=== PATIENT | female | born 1975 | race Caucasian/White ===

== ENCOUNTER 2022-01-07 22:35 | Inpatient (IN) | payer OTHER, SELFPAY ==
--- NOTE | ~2022-01-07 | XR_ITS ---
EXAMINATION: XR CHEST CLINICAL INFORMATION: Altered mental status. COMPARISON: None TECHNIQUE: Frontal portable view of the chest was obtained. 12:22 AM FINDINGS: Lung volume low. This accentuates bronchovascular markings. Cardiac and mediastinal contours are normal. The heart size is normal. No pleural effusion or pneumothorax. XR/XR chest 1V IMPRESSION: Low lung volume. No acute abnormality of chest.
--- NOTE | ~2022-01-07 | CT_ITS ---
EXAMINATION: CT HEAD WITHOUT CONTRAST CLINICAL INFORMATION: Altered mental status COMPARISON: None TECHNIQUE: Contiguous axial imaging was performed from the skull base to vertex without intravenous administration of contrast. This CT examination was performed using dose optimization techniques as appropriate, variously including the following: *Automated exposure control *Adjustment of mA and/or kV according to patient size (this includes techniques or standardized protocols for targeted exams where dose is matched to indication/reason for exam; i.e. extremities or head) *Use of iterative reconstruction technique DLP: 1202 mGy-cm FINDINGS: There is no evidence of acute intracranial hemorrhage or territorial infarction. No abnormal mass effect or midline shift is seen. Daley to white matter differentiation is well preserved. No extra-axial fluid collections are identified. The ventricles are normal in size. There is no abnormal attenuation within the brain parenchyma. The osseous structures and soft tissues are normal. There is complete opacification of the right maxillary sinus with volume loss. The mastoid air cells are well-aerated. CT/CT head/brain wo con IMPRESSION: No acute intracranial pathology.
--- NOTE | ~2022-01-07 | CT_ITS ---
EXAMINATION: CT ABDOMEN AND PELVIS WITHOUT CONTRAST CLINICAL INFORMATION: LFTs. COMPARISON: None TECHNIQUE: Multidetector volumetric imaging was performed from the superior aspect of the liver through the pubic symphysis. Sagittal and coronal reformatted images were obtained on the technologist's workstation. This CT examination was performed using dose optimization techniques as appropriate, variously including the following: *Automated exposure control *Adjustment of mA and/or kV according to patient size (this includes techniques or standardized protocols for targeted exams where dose is matched to indication/reason for exam; i.e. extremities or head) *Use of iterative reconstruction technique DLP: 735 mGy-cm FINDINGS: There are some limitations to the study without oral or IV contrast and lack of intra-abdominal fat as well as some motion artifact. LUNG BASES: There is bibasilar atelectasis present. No pleural or pericardial effusion. LIVER, GALLBLADDER, AND BILIARY TREE: There is asymmetric density of the liver which appears to be related to motion artifact as well as artifact and patient's arm down by his side. This is mainly seen throughout the right lobe of liver superiorly and liver lesion cannot be excluded on this study. There is mild hepatomegaly with vertical span of approximately 20 cm. No intrahepatic bile duct dilatation is seen. There is a small amount of fluid seen remaining the anterior lateral aspect right lobe of liver. Cholelithiasis is present with some thickening of the gallbladder wall. No fluid within the wall or pericholecystic fluid is noted. Above finding can be related to chronic cholecystitis. Correlation to pain in this location is suggested as to whether this may be related to acute cholecystitis. PANCREAS: Unremarkable. SPLEEN: Unremarkable. ADRENAL GLANDS: Unremarkable. KIDNEYS AND URETERS: The kidneys are normal in size, shape, and attenuation. No hydronephrosis, hydroureter, or calculi seen. No perinephric stranding. BLADDER: Unremarkable. GASTROINTESTINAL TRACT: No dilated loops of large and small bowel bowel identified. No free air identified. There is a small amount of ascites seen within the pelvis. With the ascites seen within the pelvis there is also some fat streaking making evaluation for possible diverticulitis difficult however no significant diverticular disease is seen in above finding is likely related to the small amount of ascites. No abscess collection is appreciated. No other pericolonic inflammatory changes appreciated. The appendix appears unremarkable. ABDOMINAL WALL: No significant hernia is appreciated. LYMPH NODES: No lymphadenopathy is appreciated. VASCULAR: Unremarkable. PELVIC VISCERA: IUD seen in place. Small amount of free fluid. OSSEOUS STRUCTURES: No suspicious findings. CT/CT abdomen pelvis wo con IMPRESSION: Hepatomegaly with limitations in evaluation as described. Small amount of ascites. Cholelithiasis with some gallbladder wall thickening but with the gallbladder being collapsed. No adjacent surrounding fluid. Above findings likely related to chronic cholecystitis and its decompressed state. No evidence of ileus or obstruction of the bowel. No evidence of obstructive uropathy. Fleischner guidelines were followed.
--- NOTE | 2022-01-07 22:57 | ECG_ITS ---
Test Reason : TACHY Blood Pressure : / mmHG Vent. Rate : 102 BPM Atrial Rate : 102 BPM P-R Int : 130 ms QRS Dur : 070 ms QT Int : 352 ms P-R-T Axes : 072 079 083 degrees QTc Int : 458 ms Sinus tachycardia Otherwise normal ECG No previous ECGs available Referred By: Missy Mcfarland Electronically Signed By:ASHLY LINK MD
--- NOTE | 2022-01-07 23:00 | ED_ITS ---
HPI - Altered Mental Status General Chief Complaint: Altered Mental Status Stated Complaint: AMS Time Seen by Provider: 01/07/22 22:55 Source: EMS and old records reviewed ([facility] records) Mode of arrival: EMS Limitations: altered mental status History of Present Illness MD complaint: altered mental status and confusion Onset (ago): hour(s) (2pm) Timing confirmed by: caregiver Severity: moderate Consistency of symptoms: getting Worse Context: other (recently admitted to [facility] 01/06 after being medically cleared at [facility] ED - negative head CT ammonia negative for depression and insomnia given IM 5mg haldol and ativan today had dystonic reaction and given cogentin no response) Associated symptoms: denies other symptoms Treatments prior to arrival: other (cogentin) Related Data Allergies Allergy/AdvReac Type Severity Reaction Status Date / Time haloperidol [From Haldol] AdvReac Intermediate Hallucinati Verified 01/07/22 22:57 ons Review of Systems Review of Systems: ROS unable to be obtained due to altered mental status [facility] Past Medical History Source: old records reviewed Medical History Asthma Cirrhosis Social History Social History (Updated 01/07/22 @ 23:01 by Missy Mcfarland DO) Alcohol intake: former Patient Tobacco Use Status: Tobacco use Unknown Advance Directives: No Physical Exam ED Vital Signs: Vital Signs - 24 hr 01/07/22 23:04 01/08/22 02:19 01/08/22 03:08 Temperature 98.7 F Pulse Rate 99 96 88 Respiratory Rate 18 18 18 Blood Pressure 107/64 94/53 L 81/54 L Pulse Oximetry 99 98 98 01/08/22 03:11 01/08/22 03:22 01/08/22 05:29 Temperature Pulse Rate 108 H 105 H 78 Respiratory Rate 18 18 14 Blood Pressure 98/71 106/65 109/76 Pulse Oximetry 99 99 99 01/08/22 05:41 Temperature Pulse Rate 78 Respiratory Rate 18 Blood Pressure Pulse Oximetry 98 BMI result Body Mass Index 19.5 Appearance: Sonolent, agitated, will not answer questions, thrashing moderate acute distress. Eyes: Pupils equal, round and reactive to light. Scleral icterus ENT: Pharynx dry MM Neck: Normal inspection. Neck supple. CVS: tachycardic heart rate and rhythm. Pulses normal. Respiratory: No respiratory distress. Breath sounds normal. Abdomen: Soft and non-tender. no distention noted Skin: Skin warm and dry. Normal skin color. Normal skin turgor. Extremities: No lower extremity edema. Neuro: moving all extremities cannot participate in exam Course Course Course Narrative: LFTs at baseline from [facility] visit total bili 5.2 on 01/06 suspect ETOH withdrawal reports of no ETOH since november 2021 but MCV high - repeat IV valium, picking at the air, will start on thiamine much more calm with ativan , BP slightly low from IV benzodiazepine, will redose IVF, hypotension due to ativan and not infection or severe sepsis MDM - Altered Mental Status MDM Narrative Medical decision making narrative: 46 yo female with hx of cirrhosis, asthma just medically cleared at [facility] ED with [facility] records showing CT head negative, ammonia negative, US of abdomen negative - voluntary admission for insomnia. She was given IM haldol 5mg today developed dystonia and confusion/hypotension afterwards around 2pm. Was t hen given IM ativan and cogentin and she he has worsened. Sent here for medical workup. Lab Data Result diagrams: 01/07/22 23:19 01/07/22 23:19 Labs: Lab Results 01/07/22 01/07/22 01/07/22 Range/Units 23:19 23:19 23:19 WBC 5.0 (4.8-10.8) X10*3/uL RBC 3.25 L (4.20-5.50) X10*6/uL Hgb 11.0 L (12.0-16.0) g/dl Hct 32.7 L (37.0-47.0) % MCV 100.6 H (80.0-98.0) fL MCH 33.8 H (27.0-33.0) pg MCHC 33.6 (31.0-35.0) g/dl RDW 14.9 (11.0-16.0) % Plt Count 97 L (160-400) X10*3/uL MPV 9.8 (9.4-12.3) fL Immature Gran % (Auto) 0.2 (0.0-0.4) % Neut % (Auto) 73.4 H (45-73) % Lymph % (Auto) 12.3 L (20-40) % [place] % (Auto) 12.3 H (2-11) % Eos % (Auto) 1.2 (0-4) % Baso % (Auto) 0.6 (0-2) % Lymph # (Auto) 0.6 L (1.2-4.9) X10*3/uL [place] # (Auto) 0.6 (0.1-1.2) X10*3/uL Eos # (Auto) 0.1 (0.0-0.4) X10*3/uL Baso # (Auto) 0.0 (0.0-0.2) X10*3/uL Abs Immat Gran (auto) 0.01 (0.00-0.03) X10*3/uL Absolute Neuts (auto) 3.7 (2.0-8.3) x10*3/uL Absolute Nucleated RBC 0.000 (0.0-0.012) X10*3/uL Nucleated RBC % (auto) 0.0 (0.0-0.2) /100WBC PT 20.6 H (9.9-13.0) SEC INR 1.8 H (0.9-1.1) VBG pH (7.32-7.43) VBG pCO2 mmHg VBG pO2 mmHg VBG HCO3 (22-26) mmol/L VBG O2 Saturation % VBG Base Excess mmol/L Sodium 134 L (135-145) mmol/L Potassium 4.4 (3.3-5.1) mmol/L Chloride 97 (96-108) mmol/L Carbon Dioxide 23 (22-29) mmol/L Anion Gap 18 (12-20) BUN 12 (9-16) mg/dL Creatinine 0.77 (0.5-1.4) mg/dL Estim Creat Clear Calc 66.7 Estimated GFR > 60 POC Glucose (60-115) mg/dL Random Glucose 106 (60-115) mg/dL Calcium 9.6 (8.4-10.2) mg/dL Magnesium 1.9 (1.6-2.6) mg/dL Total Bilirubin 4.8 H (0.0-1.0) mg/dL Direct Bilirubin 2.2 H (0.0-0.5) mg/dL AST 117 H (5-31) U/L ALT 40 H (0-31) U/L Alkaline Phosphatase 109 (39-117) U/L Ammonia (13-55) umol/L Total Protein 9.0 H (6.5-8.0) g/dL Albumin 4.3 (3.5-5.0) g/dL Lipase 12 (8-78) U/L COVID-19 (ANDRESSA) (Negative) COVID-19 Clin Com 01/07/22 01/07/22 01/07/22 Range/Units 23:19 23:24 23:27 WBC (4.8-10.8) X10*3/uL RBC (4.20-5.50) X10*6/uL Hgb (12.0-16.0) g/dl Hct (37.0-47.0) % MCV (80.0-98.0) fL MCH (27.0-33.0) pg MCHC (31.0-35.0) g/dl RDW (11.0-16.0) % Plt Count (160-400) X10*3/uL MPV (9.4-12.3) fL Immature Gran % (Auto) (0.0-0.4) % Neut % (Auto) (45-73) % Lymph % (Auto) (20-40) % [place] % (Auto) (2-11) % Eos % (Auto) (0-4) % Baso % (Auto) (0-2) % Lymph # (Auto) (1.2-4.9) X10*3/uL [place] # (Auto) (0.1-1.2) X10*3/uL Eos # (Auto) (0.0-0.4) X10*3/uL Baso # (Auto) (0.0-0.2) X10*3/uL Abs Immat Gran (auto) (0.00-0.03) X10*3/uL Absolute Neuts (auto) (2.0-8.3) x10*3/uL Absolute Nucleated RBC (0.0-0.012) X10*3/uL Nucleated RBC % (auto) (0.0-0.2) /100WBC PT (9.9-13.0) SEC INR (0.9-1.1) VBG pH 7.39 (7.32-7.43) VBG pCO2 33 mmHg VBG pO2 38 mmHg VBG HCO3 21 L (22-26) mmol/L VBG O2 Saturation 50.0 % VBG Base Excess -3.0 mmol/L Sodium (135-145) mmol/L Potassium (3.3-5.1) mmol/L Chloride (96-108) mmol/L Carbon Dioxide (22-29) mmol/L Anion Gap (12-20) BUN (9-16) mg/dL Creatinine (0.5-1.4) mg/dL Estim Creat Clear Calc Estimated GFR POC Glucose 90 (60-115) mg/dL Random Glucose (60-115) mg/dL Calcium (8.4-10.2) mg/dL Magnesium (1.6-2.6) mg/dL Total Bilirubin (0.0-1.0) mg/dL Direct Bilirubin (0.0-0.5) mg/dL AST (5-31) U/L ALT (0-31) U/L Alkaline Phosphatase (39-117) U/L Ammonia (13-55) umol/L Total Protein (6.5-8.0) g/dL Albumin (3.5-5.0) g/dL Lipase (8-78) U/L COVID-19 (ANDRESSA) Negative (Negative) COVID-19 Clin Com See Note 01/07/22 Range/Units 23:37 WBC (4.8-10.8) X10*3/uL RBC (4.20-5.50) X10*6/uL Hgb (12.0-16.0) g/dl Hct (37.0-47.0) % MCV (80.0-98.0) fL MCH (27.0-33.0) pg MCHC (31.0-35.0) g/dl RDW (11.0-16.0) % Plt Count (160-400) X10*3/uL MPV (9.4-12.3) fL Immature Gran % (Auto) (0.0-0.4) % Neut % (Auto) (45-73) % Lymph % (Auto) (20-40) % [place] % (Auto) (2-11) % Eos % (Auto) (0-4) % Baso % (Auto) (0-2) % Lymph # (Auto) (1.2-4.9) X10*3/uL [place] # (Auto) (0.1-1.2) X10*3/uL Eos # (Auto) (0.0-0.4) X10*3/uL Baso # (Auto) (0.0-0.2) X10*3/uL Abs Immat Gran (auto) (0.00-0.03) X10*3/uL Absolute Neuts (auto) (2.0-8.3) x10*3/uL Absolute Nucleated RBC (0.0-0.012) X10*3/uL Nucleated RBC % (auto) (0.0-0.2) /100WBC PT (9.9-13.0) SEC INR (0.9-1.1) VBG pH (7.32-7.43) VBG pCO2 mmHg VBG pO2 mmHg VBG HCO3 (22-26) mmol/L VBG O2 Saturation % VBG Base Excess mmol/L Sodium (135-145) mmol/L Potassium (3.3-5.1) mmol/L Chloride (96-108) mmol/L Carbon Dioxide (22-29) mmol/L Anion Gap (12-20) BUN (9-16) mg/dL Creatinine (0.5-1.4) mg/dL Estim Creat Clear Calc Estimated GFR POC Glucose (60-115) mg/dL Random Glucose (60-115) mg/dL Calcium (8.4-10.2) mg/dL Magnesium (1.6-2.6) mg/dL Total Bilirubin (0.0-1.0) mg/dL Direct Bilirubin (0.0-0.5) mg/dL AST (5-31) U/L ALT (0-31) U/L Alkaline Phosphatase (39-117) U/L Ammonia 23 (13-55) umol/L Total Protein (6.5-8.0) g/dL Albumin (3.5-5.0) g/dL Lipase (8-78) U/L COVID-19 (ANDRESSA) (Negative) COVID-19 Clin Com ECG Data ECG #1: Attestation: I personally reviewed and interpreted this ECG as follows: ECG interpretation date: 01/07/22 ECG interpretation time: 23:42 Interpretation: Rate: 102 Rhythm: sinus tachycardia [place]: normal Normal P waves. Normal MAGALI. Normal QRS complex. ST T wave : normal no DICKSON qTC: normal prior studies: no acute ischemia The study has been interpreted contemporaneously by me. . Critical Care Time Critical Care Time Critical Care Time: Yes Total Critical Care Time: 45 Attestation: review of outside records, IVF x 2L, repeat IV ativan I attest to this time spent taking care of the patient Discharge Plan Discharge Clinical Impression: Acute delirium Patient Disposition: Admitted As Inpatient
[2022-01-07 23:04] VITALS: BP 107/64; BP 112/64; PULSE 91; PULSE 99; RESP 18; TEMP 37.1; O2SAT 97; O2SAT 99; BMI 19.5
[2022-01-07] MEDS: diphenhydrAMINE HCL 50 MG/ML VIAL 25 MG IVPUSH (23:22)
[2022-01-07] MEDS: LORazepam 2 MG/ML VIAL 0.5 MG IVPUSH (23:23)
[2022-01-07] MEDS: 0.9 % Sodium Chloride 1,000 ML 999 ML IVCONT (23:24)
[2022-01-07 23:27] LABS: MANUAL DIFF FLAG NO
[2022-01-07 23:28] LABS: Basophils Percent Auto 0.6 % (0-2); Eosinophils Absolute Auto 0.1 X10*3/uL (0.0-0.4); Eosinophils Percent Auto 1.2 % (0-4); Hematocrit 32.7 % (37.0-47.0); Imm Gran Abs Auto 0.01 X10*3/uL (0.00-0.03); Imm Gran Pct Auto 0.2 % (0.0-0.4); Lymphocytes Absolute Auto 0.6 X10*3/uL (1.2-4.9); Lymphocytes Percent Auto 12.3 % (20-40); Mean Corpuscular HGB Conc 33.6 g/dl (31.0-35.0); Mean Corpuscular Hemoglobin 33.8 pg (27.0-33.0); Mean Corpuscular Volume 100.6 fL (80.0-98.0); Mean Platelet Volume 9.8 fL (9.4-12.3); Monocytes Absolute Auto 0.6 X10*3/uL (0.1-1.2); Monocytes Percent Auto 12.3 % (2-11); Neutrophils Absolute Auto 3.7 x10*3/uL (2.0-8.3); Neutrophils Percent Auto 73.4 % (45-73); Red Blood Count 3.25 X10*6/uL (4.20-5.50); Red Cell Distribution Width 14.9 % (11.0-16.0)
[2022-01-07 23:30] LABS: Glucose, Whole Blood 90 mg/dL (60-115)
[2022-01-07 23:31] LABS: VBG HCO3 21 mmol/L (22-26); VBG pCO2 33 mmHg; VBG pH 7.39 (7.32-7.43); VBG pO2 38 mmHg
[2022-01-07 23:33] LABS: Platelet Count 97 X10*3/uL (160-400)
[2022-01-07 23:36] LABS: INTERNATIONAL NORM RATIO 1.8 (0.9-1.1); Prothrombin Time 20.6 SEC (9.9-13.0)
[2022-01-07 23:45] LABS: COVID-19 Test Negative (Negative)
[2022-01-07 23:48] LABS: Venous Blood Gas Refer to POC result
[2022-01-07 23:50] LABS: Ammonia 23 umol/L (13-55)
[2022-01-07 23:59] LABS: Alanine Aminotransferase 40 U/L (0-31); Albumin Level 4.3 g/dL (3.5-5.0); Alkaline Phosphatase 109 U/L (39-117); Anion Gap 18 (12-20); Aspartate Amino Transferase 117 U/L (5-31); Bilirubin Direct 2.2 mg/dL (0.0-0.5); Bilirubin Total 4.8 mg/dL (0.0-1.0); Blood Urea Nitrogen 12 mg/dL (9-16); Calcium 9.6 mg/dL (8.4-10.2); Carbon Dioxide 23 mmol/L (22-29); Chloride 97 mmol/L (96-108); Creatinine Clr Calc Pharmacy 66.7; Estimated Glomerular Filt Rate > 60; Glucose Random 106 mg/dL (60-115); Lipase 12 U/L (8-78); Magnesium 1.9 mg/dL (1.6-2.6); Potassium 4.4 mmol/L (3.3-5.1); Sodium 134 mmol/L (135-145)
[2022-01-08] VITALS (12 sets, daily range): BP systolic 81–126; BP diastolic 53–76; PULSE 73–108; RESP 14–18; TEMP 36.3–37.2; O2SAT 98–100; BMI 19.5
[2022-01-08] MEDS: LORazepam 2 MG/ML VIAL 1 MG IVPUSH (01:28)
[2022-01-08] MEDS: 0.9 % Sodium Chloride 1,000 ML 999 ML IV (02:57)
[2022-01-08] MEDS: Thiamine HCL 200 MG in 0.9 % Sodium Chloride 100 ML 204 MG IV (03:02)
[2022-01-08] MEDS: 0.9 % Sodium Chloride 500 ML IV ×2 (03:47→03:48)
--- NOTE | 2022-01-08 05:39 | PM.IMHP ---
History of Present Illness Date of Service: 01/08/22 Chief Complaint: dystonia This is a 46-year-old female with past medical history of asthma and cirrhosis obtained from chart who presents to the hospital from [facility] for AMS. After reviewing her chart from [facility] it appears that pt was seen at [facility] for auditory and visual hallucination. Patient was diagnosed with psychosis and sent to [facility] for voluntary admission.At [facility] she received Haldol and there was concern for dystonia. Pt became more altered and therefore sent to the hospital for further management. While in the ED patient was noted to to have visual hallucinations, she received Ativan, and is now somnolent and responds only to painful stimuli. On review for vitals, appear to be stable - she did have recorded episodes of hypotension that resolved. Patient received 3.5 L of IV fluids. Labs were reviewed and are significant for WBC count of 5.0, hemoglobin of 10.1, hematocrit 30.3, INR of 1.8, sodium of 134, bilirubin of 4.8, direct bilirubin of 2.2, AST of 117, ALT of 40, Head CT showed no acute intracranial pathology Patient will be admitted for further management unable to obtain her family history due to her mental status Review of Systems Review of Systems: Yes Unobtainable due to mental condition and Unobtainable due to mental status [facility] Medical History Asthma Cirrhosis Social History Alcohol intake: former Patient Tobacco Use Status: Tobacco use Unknown Advance Directives: No Meds Allergies Allergy/AdvReac Type Severity Reaction Status Date / Time haloperidol [From Haldol] AdvReac Intermediate Hallucinati Verified 01/07/22 22:57 ons Active Medications: Current Medications Acetaminophen (Acetaminophen 325 Mg Tablet) 650 mg PO Q6H PRN PRN Reason: Pain, Mild (Pain Scale 1-3) Docusate Sodium (Docusate Sodium 100 Mg Capsule) 100 mg PO DAILY PRN PRN Reason: Constipation Enoxaparin Sodium (Enoxaparin Sodium 40 Mg/0.4 Ml Syringe) 40 mg SUBCUT Q24H LANI Sodium Chloride (Ns) 1,000 mls @ 100 mls/hr IVCONT .Q10H LANI Ondansetron HCl (Ondansetron Hcl 4 Mg/2 Ml Vial) 4 mg IVPUSH Q8H PRN PRN Reason: Nausea and Vomiting Pharmacy Consult (Consult Rx Etoh Phenob Po Dose) 1 each MISCELLANE ONCE PRN; Protocol PRN Reason: Consult order Phenobarbital 100 mg/ (Phenobarbital 15 mg) 115 mg PO Q3H [facility] Stop: 01/08/22 09:01 Sodium Chloride (0.9 % Sodium Chloride Flush 3 Ml Syringe) 3 ml IVFLUSH QSHIFT [facility] Home Medications Medication Instructions Recorded Confirmed Last Taken Type albuterol sulfate 90 mcg/actuation 2 puff INHALATION NEEDED 01/08/22 Unknown History aerosol inhaler fluticasone propionate 220 1 puff INHALATION BID 01/08/22 Unknown History mcg/actuation HFA aerosol inhaler (Flovent HFA) folic acid 1 mg tablet 1 tab PO DAILY 01/08/22 Unknown History furosemide 20 mg tablet 1 tab PO DAILY 01/08/22 Unknown History multivitamin with folic acid 400 1 tab PO DAILY 01/08/22 Unknown History mcg tablet (Daily-[place] (with folic acid)) spironolactone 50 mg tablet 1 tab PO DAILY 01/08/22 Unknown History thiamine HCl (vitamin B1) 100 mg 1 tab PO DAILY 01/08/22 Unknown History tablet Physical Exam Vital Signs and Narrative: Vital Signs: Last Vital Signs Temp 98.7 F 01/07/22 23:04 Pulse 78 01/08/22 05:29 Resp 14 01/08/22 05:29 BP 109/76 01/08/22 05:29 Pulse Ox 99 01/08/22 05:29 BMI result Body Mass Index 19.5 Const: Other: Somnolent, response to painful stimuli only General: cooperative and no acute distress Eyes: General: appearance normal, both eyes and all related structures Resp: Effort & Inspection: normal respiratory effort Auscultation: clear to auscultation bilaterally Cardio: Rate: regular rate Rhythm: regular rhythm GI: Palpation (GI): Soft to palpation Auscultation: normal bowel sounds Skin: General skin exam: no rashes or lesions noted Extrem: General: Yes normal to inspection and Yes no pedal edema Results Labs CBC and Chem 7: 01/08/22 07:16 01/07/22 23:19 Labs: Laboratory Results - last 24 hr 01/07/22 01/07/22 01/07/22 23:19 23:19 23:19 MCV 100.6 H MCH 33.8 H MCHC 33.6 RDW 14.9 Plt Count 97 L MPV 9.8 Immature Gran % (Auto) 0.2 Neut % (Auto) 73.4 H Lymph % (Auto) 12.3 L [place] % (Auto) 12.3 H Eos % (Auto) 1.2 Baso % (Auto) 0.6 Lymph # (Auto) 0.6 L [place] # (Auto) 0.6 Eos # (Auto) 0.1 Baso # (Auto) 0.0 Abs Immat Gran (auto) 0.01 Absolute Neuts (auto) 3.7 Absolute Nucleated RBC 0.000 Nucleated RBC % (auto) 0.0 PT 20.6 H INR 1.8 H VBG pH VBG pCO2 VBG pO2 VBG HCO3 VBG O2 Saturation VBG Base Excess Anion Gap 18 Estim Creat Clear Calc 66.7 Estimated GFR > 60 POC Glucose Random Glucose 106 Calcium 9.6 Magnesium 1.9 Total Bilirubin 4.8 H Direct Bilirubin 2.2 H AST 117 H ALT 40 H Alkaline Phosphatase 109 Ammonia Total Protein 9.0 H Albumin 4.3 Lipase 12 COVID-19 (ANDRESSA) COVID-19 Clin Com 01/07/22 01/07/22 01/07/22 23:19 23:24 23:27 MCV MCH MCHC RDW Plt Count MPV Immature Gran % (Auto) Neut % (Auto) Lymph % (Auto) [place] % (Auto) Eos % (Auto) Baso % (Auto) Lymph # (Auto) [place] # (Auto) Eos # (Auto) Baso # (Auto) Abs Immat Gran (auto) Absolute Neuts (auto) Absolute Nucleated RBC Nucleated RBC % (auto) PT INR VBG pH 7.39 VBG pCO2 33 VBG pO2 38 VBG HCO3 21 L VBG O2 Saturation 50.0 VBG Base Excess -3.0 Anion Gap Estim Creat Clear Calc Estimated GFR POC Glucose 90 Random Glucose Calcium Magnesium Total Bilirubin Direct Bilirubin AST ALT Alkaline Phosphatase Ammonia Total Protein Albumin Lipase COVID-19 (ANDRESSA) Negative COVID-19 Clin Com See Note 01/07/22 23:37 MCV MCH MCHC RDW Plt Count MPV Immature Gran % (Auto) Neut % (Auto) Lymph % (Auto) [place] % (Auto) Eos % (Auto) Baso % (Auto) Lymph # (Auto) [place] # (Auto) Eos # (Auto) Baso # (Auto) Abs Immat Gran (auto) Absolute Neuts (auto) Absolute Nucleated RBC Nucleated RBC % (auto) PT INR VBG pH VBG pCO2 VBG pO2 VBG HCO3 VBG O2 Saturation VBG Base Excess Anion Gap Estim Creat Clear Calc Estimated GFR POC Glucose Random Glucose Calcium Magnesium Total Bilirubin Direct Bilirubin AST ALT Alkaline Phosphatase Ammonia 23 Total Protein Albumin Lipase COVID-19 (ANDRESSA) COVID-19 Clin Com Imaging Radiologist's Impressions: Impressions Chest X-Ray 01/08/22 00:30 IMPRESSION: Low lung volume. No acute abnormality of chest. Head CT 01/08/22 01:57 IMPRESSION: No acute intracranial pathology. Assessment and Plan (1) Encephalopathy: Status: Acute (2) Hypotension: Status: Acute (3) Acute delirium: Status: Acute (4) Transaminitis: Status: Acute Plan 46-year-old female with past medical history of alcohol abuse presents to the hospital with encephalopathy # encephalopathy - likely psychosis versus drug-induced - no evidence of acute infection - head CT negative - will consult Psychiatry - if continues to be encephalopathic, consider MRI # hypotension - likely induced by medications as patient received multiple rounds of Ativan - improved with IV fluids - no evidence of infection, afebrile, no leukocytosis, normal lactic acid - monitor BP # transaminitis - unclear etiology - will obtain abdominal CT - trend liver panel DVT prophylaxis: Lovenox Quality Stroke Does the patient have a stroke diagnosis?: No VTE Prior VTE?: No VTE Risk Level:: Medical - moderate - high VTE Device Contraindication: Treatment Not Indicated VTE Drug Contraindication: N/A - Med Ordered
[2022-01-08] MEDS: Lactated Ringers 500 ML IV (06:08)
[2022-01-08] MEDS: 0.9 % Sodium Chloride 1,000 ML 100 ML IVCONT ×2 (07:19→17:52)
[2022-01-08] MEDS: Enoxaparin Sodium 40 MG/0.4 ML SYRINGE SUBCUT (07:19)
[2022-01-08 07:21] LABS: MANUAL DIFF FLAG NO
[2022-01-08] MEDS: 0.9 % Sodium Chloride Flush 3 ML SYRINGE IVFLUSH (07:23)
[2022-01-08 07:24] LABS: Basophils Absolute Auto 0.1 X10*3/uL (0.0-0.2); Eosinophils Absolute Auto 0.1 X10*3/uL (0.0-0.4); Hematocrit 30.3 % (37.0-47.0); Hemoglobin 10.1 g/dl (12.0-16.0); Imm Gran Abs Auto 0.01 X10*3/uL (0.00-0.03); Imm Gran Pct Auto 0.2 % (0.0-0.4); Lymphocytes Absolute Auto 1.1 X10*3/uL (1.2-4.9); Lymphocytes Percent Auto 21.4 % (20-40); Mean Corpuscular HGB Conc 33.3 g/dl (31.0-35.0); Mean Corpuscular Hemoglobin 33.8 pg (27.0-33.0); Mean Corpuscular Volume 101.3 fL (80.0-98.0); Mean Platelet Volume 10.9 fL (9.4-12.3); Monocytes Absolute Auto 0.9 X10*3/uL (0.1-1.2); Monocytes Percent Auto 18.8 % (2-11); Neutrophils Absolute Auto 2.8 x10*3/uL (2.0-8.3); Neutrophils Percent Auto 56.6 % (45-73); Red Blood Count 2.99 X10*6/uL (4.20-5.50); Red Cell Distribution Width 15.1 % (11.0-16.0)
[2022-01-08 07:26] LABS: Platelet Count 93 X10*3/uL (160-400)
[2022-01-08 07:36] LABS: Lactic Acid 0.9 mmol/L (0.5-2.0)
[2022-01-08 08:44] LABS: Anion Gap 15 (12-20); Blood Urea Nitrogen 8 mg/dL (9-16); Calcium 8.2 mg/dL (8.4-10.2); Carbon Dioxide 18 mmol/L (22-29); Chloride 106 mmol/L (96-108); Creatinine Clr Calc Pharmacy 91.7; Estimated Glomerular Filt Rate > 60; Glucose Random 74 mg/dL (60-115); Potassium 4.3 mmol/L (3.3-5.1); Sodium 135 mmol/L (135-145)
[2022-01-08 08:48] LABS: Procalcitonin 0.11 ng/mL
--- NOTE | 2022-01-08 09:10 | PHA.MEDREC ---
Pharmacy Consult ? Medication Reconciliation Pharmacy has completed the medication reconciliation.
--- NOTE | 2022-01-08 12:32 | PC.NURSE ---
report obtained from juliana, [facility] patient was transferred from stretcher to bed, patient currently appears to be sleeping, opened her eyes to stimulus but was unable to speak to this nurse, ivf running per order, call denise within reach, pt resting comfortably at this time, will continue to monitor.
--- NOTE | 2022-01-08 12:49 | PC.NURSE ---
patient is incontinent, pure wick placed to assist with patient comfort
--- NOTE | 2022-01-08 14:36 | PM.EVENT ---
Event Note Date of Service: 01/08/22 Event Note: The patient was seen and evaluated this morning Still altered mentation but responsive to painful stimuli GCS score of 9 BMP showing metabolic acidosis To recheck blood work Pending psychiatry consult
--- NOTE | 2022-01-08 15:20 | MHC.CARE ---
Please consult CARE Team when pt is medically cleared for evaluation.
[2022-01-08 15:56] LABS: Anion Gap 15 (12-20); Blood Urea Nitrogen 8 mg/dL (9-16); Calcium 7.9 mg/dL (8.4-10.2); Carbon Dioxide 18 mmol/L (22-29); Chloride 107 mmol/L (96-108); Creatinine Clr Calc Pharmacy 90.2; Estimated Glomerular Filt Rate > 60; Glucose Random 74 mg/dL (60-115); Potassium 3.9 mmol/L (3.3-5.1); Sodium 136 mmol/L (135-145)
--- NOTE | 2022-01-08 16:52 | MHC.CARE ---
CARE Team is aware of pt. Consult CARE Team when pt is medically cleared for evaluation.
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
[2022-01-08] MEDS: Sertraline HCL 25 MG TABLET 12.5 MG PO (17:51)
[2022-01-08] MEDS: Thiamine HCL 100 MG TABLET PO (17:52)
[2022-01-08] MEDS: Folic Acid 1 MG TABLET PO (17:52)
[2022-01-08 18:38] LABS: Iron 151 mcg/dL (30-160); Percent Iron Saturation 63 % (15-50); Total Iron Binding Capacity 239 mcg/dL (228-428); Unsaturated Iron Binding 88 ug/dL
[2022-01-08 18:57] LABS: TSH reflex Free T4 2.22 uIU/mL (0.32-4.0)
[2022-01-08 18:58] LABS: Thyroid Stimulating Hormone 2.14 uIU/mL (0.32-4.0); Vitamin D 25-OH Total 19.5 ng/mL (>30)
[2022-01-09 03:46] VITALS: BP 96/54; PULSE 67; RESP 18; TEMP 36.6; O2SAT 97
[2022-01-09 07:34] LABS: Prothrombin Time 22.5 SEC (9.9-13.0)
[2022-01-09 07:56] LABS: Alanine Aminotransferase 38 U/L (0-31); Albumin Level 3.1 g/dL (3.5-5.0); Alkaline Phosphatase 76 U/L (39-117); Anion Gap 13 (12-20); Aspartate Amino Transferase 126 U/L (5-31); Bilirubin Direct 1.6 mg/dL (0.0-0.5); Bilirubin Total 3.4 mg/dL (0.0-1.0); Blood Urea Nitrogen 9 mg/dL (9-16); Calcium 7.9 mg/dL (8.4-10.2); Carbon Dioxide 19 mmol/L (22-29); Chloride 108 mmol/L (96-108); Creatinine Clr Calc Pharmacy 88.8; Estimated Glomerular Filt Rate > 60; Glucose Random 76 mg/dL (60-115); Potassium 3.7 mmol/L (3.3-5.1); Sodium 136 mmol/L (135-145); Total Protein 6.3 g/dL (6.5-8.0)
[2022-01-09 08:00] VITALS: BP 93/57; PULSE 69; RESP 17; TEMP 37.3; O2SAT 98
[2022-01-09] MEDS: Multivitamin TABLET 1 TAB PO (09:01)
[2022-01-09] MEDS: Thiamine HCL 100 MG TABLET PO (09:02)
[2022-01-09] MEDS: 0.9 % Sodium Chloride Flush 3 ML SYRINGE IVFLUSH ×3 (09:02→21:07)
[2022-01-09] MEDS: Folic Acid 1 MG TABLET PO (09:02)
[2022-01-09] MEDS: Sertraline HCL 25 MG TABLET 12.5 MG PO (09:03)
[2022-01-09 11:32] VITALS: BP 105/47; PULSE 72; RESP 18; TEMP 36.8; O2SAT 98
--- NOTE | 2022-01-09 11:58 | HO.PM.IMPN ---
Subjective Subjective Date of Service: 01/09/22 Interval History: Laying in bed, feels mild improvement but still reporting general weakness She was able to sleep well overnight Still look anxious, having less tremors than yesterday Denies any fever, chills or chest pain No reported other overnight events. Systemic review: No fever, chills but reports generalized weakness and feeling sleepy but not back to her normal self yet No chest pain, palpitation No shortness of breath or coughing No abdominal pain, nausea or vomiting No urinary symptoms Denies any rash or wounds Physical Exam Vital Signs: Vital Signs: Last Vital Signs Temp 98.2 F 01/09/22 11:32 Pulse 72 01/09/22 11:32 Resp 18 01/09/22 11:32 BP 105/47 L 01/09/22 11:32 Pulse Ox 98 01/09/22 11:32 BMI result Body Mass Index 19.5 Const: Other: Constitutional : Alert, interactive, mildly anxious Neck : Normal inspection, Supple Cardiovascular : RRR, no JVP, no lower extremity edema Respiratory : fair bilateral air entry, no crackles, wheezes or rhonchi Gastrointestinal: soft, lax, Normal bowel sounds, Non tender Skin : Warm, Dry Neurological : Alert & oriented to self and place, No focal deficit , having fine action tremors Psychological: No reported hallucinations this morning as she slipped overnight Objective Data Active Medications Acetaminophen (Acetaminophen 325 Mg Tablet) 650 mg PO Q6H PRN PRN Reason: Pain, Mild (Pain Scale 1-3) Albuterol Sulfate (Albuterol Sulfate 90 Mcg 8 Gm Inhaler) 2 puff INHALE Q4H PRN PRN Reason: Shortness of Breath Docusate Sodium (Docusate Sodium 100 Mg Capsule) 100 mg PO DAILY PRN PRN Reason: Constipation Enoxaparin Sodium (Enoxaparin Sodium 40 Mg/0.4 Ml Syringe) 40 mg SUBCUT Q24H [facility] Last Admin: 01/09/22 05:42 Dose: Not Given Documented by: JORDON Non-Admin Reason: Patient Asleep Folic Acid (Folic Acid 1 Mg Tablet) 1 mg PO DAILY [facility] Last Admin: 01/09/22 09:02 Dose: 1 mg Documented by: MARCELA Hydroxyzine HCl (Hydroxyzine Hcl 50 Mg Tablet) 50 mg PO Q6H PRN PRN Reason: anxiety/restlessness Lorazepam (Lorazepam 0.5 Mg Tablet) 0.5 mg PO Q4H PRN PRN Reason: anxiety/restlessness Multivitamins/Vitamin C (Multivitamin Tablet) 1 tab PO DAILY [facility] Last Admin: 01/09/22 09:01 Dose: 1 tab Documented by: MARCELA Ondansetron HCl (Ondansetron Hcl 4 Mg/2 Ml Vial) 4 mg IVPUSH Q8H PRN PRN Reason: Nausea and Vomiting Pharmacy Consult (Consult Rx Perform Med Rec) 1 each MISCELLANE ONCE PRN PRN Reason: Consult order Sertraline HCl (Sertraline Hcl 25 Mg Tablet) 12.5 mg PO DAILY [facility] Last Admin: 01/09/22 09:03 Dose: 12.5 mg Documented by: MARCELA Sodium Chloride (0.9 % Sodium Chloride Flush 3 Ml Syringe) 3 ml IVFLUSH QSHIFT [facility] Last Admin: 01/09/22 09:02 Dose: 3 ml Documented by: MARCELA Thiamine HCl (Thiamine Hcl 100 Mg Tablet) 100 mg PO DAILY [facility] Last Admin: 01/09/22 09:02 Dose: 100 mg Documented by: MARCELA Labs CBC & Chem 7: 01/08/22 07:16 01/09/22 06:02 Labs: Laboratory Results - last 24 hr 01/08/22 01/08/22 01/08/22 15:30 18:15 18:15 PT INR Anion Gap 15 Estim Creat Clear Calc 90.2 Estimated GFR > 60 Random Glucose 74 Calcium 7.9 L Iron 151 TIBC 239 % Saturation 63 H Unsat Iron Binding 88 Total Bilirubin Direct Bilirubin AST ALT Alkaline Phosphatase Total Protein Albumin 25-OH Vitamin D Total 19.5 TSH 2.14 2.22 01/09/22 01/09/22 06:02 06:02 PT 22.5 H INR 2.0 H Anion Gap 13 Estim Creat Clear Calc 88.8 Estimated GFR > 60 Random Glucose 76 Calcium 7.9 L Iron TIBC % Saturation Unsat Iron Binding Total Bilirubin 3.4 H Direct Bilirubin 1.6 H AST 126 H ALT 38 H Alkaline Phosphatase 76 D Total Protein 6.3 L D Albumin 3.1 L D 25-OH Vitamin D Total TSH Assessment and Plan (1) Transaminitis: Status: Acute (2) Hallucination: Status: Acute (3) Sleep deprivation: Status: Acute (4) Hypotension: Status: Acute Plan 46-year-old female with past medical history of alcohol abuse presents to the hospital with encephalopathy # toxic metabolic encephalopathy Likely drug abuse, improving back to baseline no evidence of acute infection head CT negative Psychiatry input appreciated # sleep deprivation # hallucinations Psychiatry team to re-evaluate the patient for the need of psychiatry [facility] with anxiety and sleep Started on sertraline # hypotension no evidence of infection/sepsis, afebrile, no leukocytosis, normal lactic acid She runs at low blood pressure at home per Hold Lasix and spironolactone likely worsened by medications To discontinue IV fluids monitor BP # transaminitis Likely related to medications Trending down abdominal CT showing mild hepatomegaly with asymmetry density which appears to be related to of motion artifact. Check hepatitis profile trend liver panel DVT prophylaxis: Lovenox Quality Stroke Does the patient have a stroke diagnosis?: No VTE Prior VTE?: No VTE Risk Level:: Medical - moderate - high VTE Device Contraindication: Treatment Not Indicated VTE Drug Contraindication: N/A - Med Ordered
--- NOTE | 2022-01-09 13:46 | MHC.CM.PN ---
Addendum entered by Luz Castillo RN 01/09/22 14:01: CM CONTACTED [facility] AT 1:150PM AND MED RECORDS REPORT THEY DO NOT HAVE A HCP ON FILE FOR PT. 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 D/C PLAN: HOME NO SERVICES, FAMILY FOR TRANSPORT
[2022-01-09 15:53] VITALS: BP 114/56; PULSE 71; RESP 18; TEMP 36.4; O2SAT 100
--- NOTE | 2022-01-09 19:35 | PM.EVENT ---
Event Note Date of Service: 01/09/22 Event Note: Met with pt and . Pt significantly improved. Alert, oriented, feeling tired. Minimal memory of the past few days. Discussed use of Melatonin and history of liver disease. Both report that they are pleased with her improvement. Encouraged pt to work with Kelsey to obtain psychotherapy and she will consider this, limit melatonin, and to call, return as needed if we can be of help.
[2022-01-09 20:00] VITALS: BP 101/50; PULSE 82; RESP 18; TEMP 36.1; O2SAT 100
[2022-01-09] MEDS: LORazepam 0.5 MG TABLET PO (21:06)
[2022-01-10] VITALS: BP 90/49; PULSE 67; RESP 18; TEMP 36.6; O2SAT 98
[2022-01-10 04:00] VITALS: BP 96/56; PULSE 70; RESP 18; TEMP 36.3; O2SAT 96
[2022-01-10] MEDS: Enoxaparin Sodium 40 MG/0.4 ML SYRINGE SUBCUT (05:53)
[2022-01-10 06:15] LABS: INTERNATIONAL NORM RATIO 1.8 (0.9-1.1); Prothrombin Time 20.8 SEC (9.9-13.0)
[2022-01-10 06:27] LABS: Anion Gap 11 (12-20); Blood Urea Nitrogen 9 mg/dL (9-16); Calcium 8.3 mg/dL (8.4-10.2); Carbon Dioxide 23 mmol/L (22-29); Chloride 107 mmol/L (96-108); Creatinine Clr Calc Pharmacy 83.1; Estimated Glomerular Filt Rate > 60; Glucose Random 83 mg/dL (60-115); Potassium 3.6 mmol/L (3.3-5.1); Sodium 137 mmol/L (135-145)
[2022-01-10 06:38] LABS: Alanine Aminotransferase 40 U/L (0-31); Albumin Level 3.1 g/dL (3.5-5.0); Alkaline Phosphatase 70 U/L (39-117); Aspartate Amino Transferase 115 U/L (5-31); Bilirubin Direct 1.3 mg/dL (0.0-0.5); Bilirubin Total 2.7 mg/dL (0.0-1.0); Total Protein 6.4 g/dL (6.5-8.0)
[2022-01-10] MEDS: Multivitamin TABLET 1 TAB PO (07:38)
[2022-01-10] MEDS: Thiamine HCL 100 MG TABLET PO (07:38)
[2022-01-10] MEDS: 0.9 % Sodium Chloride Flush 3 ML SYRINGE IVFLUSH (07:38)
[2022-01-10] MEDS: Sertraline HCL 25 MG TABLET 12.5 MG PO (07:38)
[2022-01-10] MEDS: Folic Acid 1 MG TABLET PO (07:38)
[2022-01-10 07:43] VITALS: BP 86/54; PULSE 69; RESP 18; TEMP 36.9; O2SAT 98
[2022-01-10 07:54] LABS: HBS Num1 1.16 mIU/mL (0-7.99); HBc Num1 0.79 S/CO (0.00-0.79); HBsAGNum1 0.26 S/CO (0.00-0.99); Hepatitis B Core Antibody Nonreactive (Nonreactive); Hepatitis B Surface Antigen Negative (Negative); ~HepC Num1 0.25 S/CO (0.00-0.79); ~Hepatitis B Surface Antibody NONREACTIVE (Nonreactive); ~Hepatitis C Antibody Nonreactive (Nonreactive)
[2022-01-10 09:15] VITALS: BP 90/55
[2022-01-10 09:57] LABS: Folate > 20.0 ng/mL (> or = 4.0); Vitamin B12 789 pg/mL (200-900)
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
--- NOTE | 2022-01-10 10:18 | PM.DS ---
DS: Providers Provider Date of Service: 01/10/22 Date of admission: 01/08/22 05:33 Primary care physician: Vicente Luu MD Consults: 01/08/22 07:22 Consult to Psychiatry Routine Consulting Provider: Psych Covering Reason for consultation: psychosis, hallucinations, medication advice 01/08/22 15:10 Consult to Care Team Routine Comment: Reason for consultation: Anxiety attacks, unable to sleep DS: Diagnosis Discharge Diagnosis (1) Transaminitis: Status: Acute (2) Hallucination: Status: Acute (3) Sleep deprivation: Status: Acute (4) Hypotension: Status: Acute DS: Summary Hospital Course Hospital Course: Chief Complaint: dystonia This is a 46-year-old female with past medical history of asthma and cirrhosis obtained from chart who presents to the hospital from [facility] for AMS. After reviewing her chart from [facility] it appears that pt was seen at [facility] for auditory and visual hallucination.? Patient was diagnosed with psychosis and sent to [facility] for voluntary admission.At [facility] she received Haldol and there was concern for dystonia. Pt became more altered and therefore sent to the hospital for further management. While in the ED patient was noted to to have visual hallucinations, she received Ativan, and is now somnolent and responds only to painful stimuli. On review for vitals, appear to be stable - she did have recorded episodes of hypotension that resolved.? Patient received 3.5 L of IV fluids. Labs were reviewed and are significant for WBC count of 5.0, hemoglobin of 10.1, hematocrit 30.3, INR of 1.8, sodium of 134, bilirubin of 4.8, direct bilirubin of 2.2, AST of 117, ALT of 40, Head CT showed no acute intracranial pathology Patient will be admitted for further management unable to obtain her family history due to her mental status Hospital cours: Patient presented with AMS, dystonia belived to be related to Haldol given for Psychosis, she was given ativan in the ED and since then has made complete recovery with return to baseline mental status. Psych saw her with the following remarks .Pt significantly improved. Alert, oriented, feeling tired. Minimal memory of the past few days. Discussed use of Melatonin and history of liver disease. Both report that they are pleased with her improvement. Encouraged pt to work with Kelsey to obtain psychotherapy and she will consider this, limit melatonin, and to call, return as needed if we can be of help. At this time she's doing well, I stressed limit use of melatonin as well. Her blood pressure is noted to be low and runs chronically low and is assymptomatic likely due to chronic liver disease. INR is chronically high due to coagulopathy from cirrhosis of the liver Time Spent with Patient Time attestation: Total time spent providing and/or coordinating discharge services: Discharge coordination time: Greater than 30 minutes Quality: Safe Use of Opioids Does Pt have an Active Cancer Diagnosis on the Problem List?: No Quality: Stroke Does the patient have a stroke diagnosis?: No Physical Exam Vital Signs: Vital Signs: Last Vital Signs Temp 98.5 F 01/10/22 07:43 Pulse 69 01/10/22 07:43 Resp 18 01/10/22 07:43 BP 90/55 L 01/10/22 09:15 Pulse Ox 98 01/10/22 07:43 BMI result Body Mass Index 19.5 Const: Other: General: AO X 3, no acute distress, cooperative lucid--having normal conversation. states she's at her baseline Resp: CTA bilateral CVS: S1,S2,RRR GI: +BS, NT, no distention Skin: No rash Neuro: motor grossly intact Psych: appropriate affect, not hearing voices, or seeing things, no suicidal, no homicidal thought and thought of self harm or harm to others DS: Data Data Completed and Pending Labs on day of discharge: Laboratory Results - last 24 hr 01/08/22 01/09/22 01/10/22 18:15 06:02 05:34 PT INR Sodium 137 Potassium 3.6 Chloride 107 Carbon Dioxide 23 Anion Gap 11 L BUN 9 Creatinine 0.62 Estim Creat Clear Calc 83.1 Estimated GFR > 60 Random Glucose 83 Calcium 8.3 L Total Bilirubin Direct Bilirubin AST ALT Alkaline Phosphatase Total Protein Albumin Vitamin B12 789 Folate > 20.0 Hep Bs Antigen Negative Hep Bs Antibody NONREACTIVE Hep B Core Total Ab Nonreactive Hepatitis C Ab (EIA) Nonreactive 01/10/22 01/10/22 05:34 05:34 PT 20.8 H INR 1.8 H Sodium Potassium Chloride Carbon Dioxide Anion Gap BUN Creatinine Estim Creat Clear Calc Estimated GFR Random Glucose Calcium Total Bilirubin 2.7 H Direct Bilirubin 1.3 H AST 115 H ALT 40 H Alkaline Phosphatase 70 Total Protein 6.4 L Albumin 3.1 L Vitamin B12 Folate Hep Bs Antigen Hep Bs Antibody Hep B Core Total Ab Hepatitis C Ab (EIA) Discharge Plan Discharge Anticipated Discharge Date/Time: 01/10/22 10:39 Patient Disposition: Home, Self-Care Discharge Diagnosis: Encephalpathy Referrals: [facility] [Other] ([facility] if needed) [facility] [Other] (Please search for mental health providers. [email or web address] ) [facility] [Other] - 1 Week (Secure Text: [phone]) Vicente Luu MD [Primary Care Provider] - 1 Week Discharge Medications: Continued thiamine HCl (vitamin B1) 100 mg tablet 1 tab PO DAILY 0RF folic acid 1 mg tablet 1 tab PO DAILY 0RF Flovent HFA 220 mcg/actuation HFA aerosol inhaler 1 puff inhalation BID 0RF furosemide 20 mg tablet 1 tab PO DAILY 0RF albuterol sulfate 90 mcg/actuation HFA aerosol inhaler 2 puff inhalation NEEDED 0RF spironolactone 50 mg tablet 1 tab PO DAILY 0RF multivitamin with folic acid [Daily-[place] (with folic acid)] 400 mcg tablet 1 tab PO DAILY 0RF Discharge Orders: Discharge Order (Routine); Ordered 01/10/22 Ordered By: kM Garcia Diet: advance to usual diet Activity on Discharge: As tolerated Stand Alone Forms: Patient Portal Discharge page, Work/School Release Care Plan Goals: Full reocvery from Psychosis [place] resolution Health Concerns: cirrhosis of liver Plan of Treatment: Do not exceed 10 to 15 mg mg of Melatonin a day continue takeing lasix and Aldactone: if top blood pressure number is is less than 90 to 100, take Aldactone, if over 100 may take both [place] and Lasix and if less than 90 do not take either Lasix or Aldactone. Foillow up up with your Doctor in a week, call for appointment Work with Kelsey to secure a Psychotherapist Assessment: as above
[2022-01-10 12:00] VITALS: BP 91/52; PULSE 76; RESP 18; TEMP 36.8; O2SAT 100
--- NOTE | 2022-01-10 13:29 | MHC.CM.PN ---
PT MEDICALLY CLEARED FOR D/C PER HOSPITALIST AND CARE TEAM, PER CARE TEAM PT WAS TRIGGERED BY [employer] IN [place] AND HAD NOT SLEP IN 5-6 DAYS, PT HAD SIMILAR EPISODE YRS AGO WHERE THE SAME THING HAPPENED AFTER NOT SLEEPING FOR 5 DAYS. DCP: HOME SELF-CARE, FAMILY FOR TRANSPORT
[2022-01-12 03:48] LABS: ~Hepatitis A Antibody IgM Nonreactive (Nonreactive)
== END 2022-01-10 15:00 | disposition home or self-care (01) | DRG 312 ==
LOC: HO.ED 01-08 03:04 → HO.EDOVER 01-08 07:17 → HO.S3 01-08 14:41
PROVIDERS: Clinical Nurse Specialist Psychiatric/Mental Health, Adult; Student in an Organized Health Care Education/Training Program; Admitting Provider Internal Medicine; Emergency Provider Emergency Medicine; PCP Internal Medicine; Visit Provider Internal Medicine
DX: I95.2 Hypotension due to drugs (principal); G93.40 Encephalopathy, unspecified; E87.2 Acidosis; K74.60 Unspecified cirrhosis of liver; J45.909 Unspecified asthma, uncomplicated; T43.4X5A Adverse effect of butyrophenone and thiothixene neuroleptics, initial encounter; Z72.820 Sleep deprivation; Z20.822 Contact with and (suspected) exposure to COVID-19; Z88.8 Allergy status to other drugs, medicaments and biological substances; Z79.899 Other long term (current) drug therapy
CPT/HCPCS: 36415; 70450; 71045; 74176; 80048; 80076; 82140; 82306; 82607; 82746; 82803; 82947; 83540; 83605; 83690; 83735; 84145; 84443; 85025; 85610; 86704; 86706; 86709; 86803; 87340; 87635; 93005; 96361; 96365; 96375; 96376; 99285; J1200; J1650; J2060; J3411